=== PATIENT | female | born 1990 | race Asian ===

== ENCOUNTER 2023-07-08 11:16 | Outpatient (CLI) | payer SELFPAY ==
[2023-07-08 12:06] LABS: Basophils Percent Auto 0.2 % (0.2-1.2); Eosinophils Absolute Auto 0.1 K/mm3 (0-0.3); Eosinophils Percent Auto 0.7 % (0-4.4); Hemoglobin 12.6 g/dL (12.0-15.0); Immature Granulocyte Absolute 0.04 K/mm3 (0.00-0.031); Immature Granulocyte Percent A 0.5 % (0-0.5); Lymphocytes Absolute Auto 1.11 K/mm3 (0.9-3.2); Lymphocytes Percent Auto 12.9 % (18.3-44.2); Mean Corpuscular Hemoglobin 31.4 pg (26-34); Mean Corpuscular Volume 89.8 fl (80-100); Mean Platelet Volume 12.7 fl (7.4-10.4); Monocytes Absolute Auto 0.6 K/mm3 (0.1-0.6); Monocytes Percent Auto 7.1 % (2.6-8.5); Neutrophils Absolute Auto 6.8 K/mm3 (1.3-6.7); Neutrophils Percent Auto 78.6 % (45.5-73.1); Platelet Count Result 119 k/mm3 (150-375); Red Blood Count 4.01 M/mm3 (4.2-5.4); Red Cell Distribution Width 13.5 % (11.5-14.5); White Blood Count 8.6 K/mm3 (4.5-10.0)
[2023-07-08 12:14] LABS: Alanine Aminotransferase 25 U/L (6-35); Albumin Level 3.7 g/dL (3.5-5.1); Alkaline Phosphatase 91 U/L (38-126); Anion Gap 7 mmol/L (8-16); Aspartate Amino Transferase 27 U/L (14-36); Bilirubin,Total 0.3 mg/dL (0.2-1.3); Blood Urea Nitrogen 8 mg/dL (7-17); Calcium 9.2 mg/dL (8.4-10.2); Carbon Dioxide 22 mmol/L (22-30); Chloride 106 mmol/L (98-107); Estimated Glomerular Filt Rate > 60; Glucose 104 mg/dL (65-110); Potassium 3.9 mmol/L (3.4-5.0); Sodium 135 mmol/L (137-145)
[2023-07-08 12:53] LABS: HIV 1/2 Ab P24 Ag Result Negative (Negative)
== END 2023-07-08 11:17 | disposition home or self-care (01) ==
PROVIDERS: Visit Provider Obstetrics & Gynecology
DX: Z34.90 Encounter for supervision of normal pregnancy, unspecified, unspecified trimester (principal)
CPT/HCPCS: 36415; 80053; 85025; 86644; 86703; 86747; 86787; G0432

== ENCOUNTER 2023-08-09 14:53 | Outpatient (CLI) | payer SELFPAY ==
[2023-08-09 15:17] LABS: Immature Platelet Fraction Pct 29.5 % (0.9-11.2); Platelet Count Result 115 k/mm3 (150-375)
== END 2023-08-09 14:54 | disposition home or self-care (01) ==
PROVIDERS: Visit Provider Obstetrics & Gynecology
DX: O99.119 Other diseases of the blood and blood-forming organs and certain disorders involving the immune mechanism complicating pregnancy, unspecified trimester (principal); D69.6 Thrombocytopenia, unspecified; Z3A.00 Weeks of gestation of pregnancy not specified
CPT/HCPCS: 36415; 85049; 85055

== ENCOUNTER 2023-09-01 21:38 | Inpatient (IN) | payer SELFPAY ==
--- NOTE | 2023-09-01 23:53 | OBADM ---
This patient, Avinash Ansari, admitted to the OB room Labor/Delivery/Recovery 104 for observation. Patient/family oriented to hospital policies and general routines including ID bracelet, bed and alarms, visiting hours, pain management, procedures, bathroom and other care routines, personal items, smoking policy, room service/diet, and visiting hours. Patient/Family are encouraged to report perceived risks to care and to ask questions if they do not understand what they are told or what they should do.
[2023-09-02] VITALS (166 sets, daily range): BP systolic 73–228; BP diastolic 43–205; PULSE 26–288; RESP 18–20; TEMP 36.4–37.9; O2SAT 79–100; BMI 28.6
--- NOTE | 2023-09-02 01:24 | LDADM ---
This patient, Avinash Ansari, was admitted to Labor/Delivery/Recovery 104 on 09/02/23 at 01:24. Plans for labor, pain management and were discussed with patient. Patient/family oriented to hospital policies and general routines including ID bracelet, bed and alarms, visiting hours, pain management, procedures, bathroom and other care routines, personal items, smoking policy, room service/diet and guest tray routines, infant security routines, and visiting hours. Patient/Family are encouraged to report perceived risks to care and to ask questions if they do not understand what they are told or what they should do. See OBIX for further documentation.
[2023-09-02] MEDS: LACTATED RINGERS 1,000 ML 125 ML IV CONT ×2 (01:50→02:33)
[2023-09-02 01:55] LABS: Basophils Percent Auto 0.1 % (0.2-1.2); Eosinophils Percent Auto 0.1 % (0-4.4); Hematocrit 37.5 % (37.0-47.0); Hemoglobin 12.6 g/dL (12.0-15.0); Immature Granulocyte Absolute 0.06 K/mm3 (0.00-0.031); Immature Granulocyte Percent A 0.4 % (0-0.5); Immature Platelet Fraction Pct 30.8 % (0.9-11.2); Lymphocytes Absolute Auto 1.15 K/mm3 (0.9-3.2); Lymphocytes Percent Auto 8.3 % (18.3-44.2); Mean Corpuscular HGB Conc 33.6 g/dl (32-36); Mean Corpuscular Hemoglobin 29.6 pg (26-34); Mean Corpuscular Volume 88.2 fl (80-100); Monocytes Absolute Auto 0.8 K/mm3 (0.1-0.6); Monocytes Percent Auto 5.9 % (2.6-8.5); Neutrophils Absolute Auto 11.8 K/mm3 (1.3-6.7); Neutrophils Percent Auto 85.2 % (45.5-73.1); Platelet Count Result 103 k/mm3 (150-375); Red Blood Count 4.25 M/mm3 (4.2-5.4); White Blood Count 13.8 K/mm3 (4.5-10.0)
--- NOTE | 2023-09-02 02:07 | WPDANESEPP ---
Anes - Eval Pre Procedure Procedure: Labor epidural Date/Time: 09/02/23 02:07 Surgeon: Andrzej Preop Diagnosis: Abdominal pain with contractions Pre Op Diagnosis: Contractions Patient Data Age: 33 Gender: F Height: 1.57 m Weight: 71 kg Last Vital Signs Pulse Ox 100 09/02/23 02:03 Allergies Allergy/AdvReac Type Severity Reaction Status Date / Time No Known Allergies Allergy Verified 09/01/23 17:38 Home Medications Medication Instructions Recorded Confirmed Type vits no.126-ferrous fum 1 tablet PO DAILY 08/09/23 09/02/23 History 28 mg iron-folic acid 800 mcg tablet (Classic ) Laboratory Tests 09/02/23 01:39 WBC 13.8 H K/mm3 (4.5-10.0) RBC 4.25 M/mm3 (4.2-5.4) Hgb 12.6 g/dL (12.0-15.0) Hct 37.5 % (37.0-47.0) MCV 88.2 fl (80-100) MCH 29.6 pg (26-34) MCHC 33.6 g/dl (32-36) RDW 14.0 % (11.5-14.5) Plt Count 103 L k/mm3 (150-375) MPV TNP Immature Gran % (Auto) 0.4 % (0-0.5) Neut % (Auto) 85.2 H % (45.5-73.1) Lymph % (Auto) 8.3 L % (18.3-44.2) [place] % (Auto) 5.9 % (2.6-8.5) Eos % (Auto) 0.1 % (0-4.4) Baso % (Auto) 0.1 L % (0.2-1.2) Lymph # (Auto) 1.15 K/mm3 (0.9-3.2) [place] # (Auto) 0.8 H K/mm3 (0.1-0.6) Eos # (Auto) 0.0 K/mm3 (0-0.3) Baso # (Auto) 0.0 K/mm3 (0.0-0.1) Abs Immat Gran (auto) 0.06 H K/mm3 (0.00-0.031) Absolute Neuts (auto) 11.8 H K/mm3 (1.3-6.7) Absolute Nucleated RBC 0.000 K/mm3 (0.0-0.012) Nucleated RBC % 0.0 % (0.0-0.2) % Immature Plt Fraction 30.8 H % (0.9-11.2) RPR Pending Blood Type Pending Antibody Screen Pending : gestational age HCG: positive Patient hx anesthesia problems: none Family hx anesthesia problems: none Results Review: All pre-operative results and documents have been reviewed as part of the pre-operative evaluation. [facility] Past Medical History Medical History (Updated 09/02/23 @ 02:08 by Eron Morales CRNA) Gestational thrombocytopenia and not yet delivered Family History Family History Other No pertinent family history Social History Social History Smoking status: Never smoker Alcohol intake: never Substance use: never Do You Feel Safe in your Home?: Yes Lack of Transportation: No Lack of Food: Never True Current Housing: I Have Housing Concerned About Future Housing: No Difficulty Paying Gas/Electric Bills: No Difficulty Paying for Meds: No Currently Unemployed: No Education: Bachelor's Degree Difficulty w/ Childcare or Family Care: No Living arrangements: with family Occupation/Education: unemployed Gender identity (if verbalized by the patient): Female Sexual Orientation (if Verbalized by the Patient): Straight or Heterosexual Spiritual care concerns: No Exam Day of Procedure 09/02/23 02:07 Patient weight: overweight
[2023-09-02] MEDS: fentaNYL CITRATE INJ (*CRX) 100 MCG/2 ML VIAL 50 MCG IV PUSH (02:10)
[2023-09-02] MEDS: PHENYLEPHRINE 1,000 MCG/10 ML SYRINGE 100 MCG IV PUSH (03:17)
--- NOTE | 2023-09-02 03:54 | PM.IMHP ---
H&P: HPI History of Present Illness Date/Time: 09/02/23 03:54 Chief Complaint: contractions Narrative: Avinash is a 33yo @ 39.4wks who presented overnight with painful contractions. She made change from 3.5 to 6 to 9cm. She got an epidural and is now comfortable. She denies any VB or LOF. Her is complicated by: - 31wk transfer from [place] - ? Gestational Thrombocytopenia? plts 119 --> 115 --> 103 on admission Review of Systems Constitutional: Constitutional: Denies chills, Denies fever(s) and Denies headache(s) Eyes: Eyes: Denies change in vision ENT: Denies headache(s) Cardiovascular: Cardiovascular: Denies chest pain and Denies dyspnea Respiratory: Respiratory: Denies dyspnea Genitourinary: Genitourinary: Denies abnormal vaginal bleeding and Denies vaginal discharge Neurologic: Denies headache(s) Psychiatric: Psychiatric: Denies anxiety and Denies depression [facility] Past Medical History Medical History (Updated 09/02/23 @ 04:00 by Alexandria Donnelly MD) Gestational thrombocytopenia and not yet delivered Family History Family History Other No pertinent family history Social History Social History Smoking status: Never smoker Alcohol intake: never Substance use: never Do You Feel Safe in your Home?: Yes Lack of Transportation: No Lack of Food: Never True Current Housing: I Have Housing Concerned About Future Housing: No Difficulty Paying Gas/Electric Bills: No Difficulty Paying for Meds: No Currently Unemployed: No Education: Bachelor's Degree Difficulty w/ Childcare or Family Care: No Living arrangements: with family Occupation/Education: unemployed Gender identity (if verbalized by the patient): Female Sexual Orientation (if Verbalized by the Patient): Straight or Heterosexual Spiritual care concerns: No Meds Home Medications and Allergies Home Medications Medication Instructions Recorded Confirmed Type vits no.126-ferrous fum 1 tablet PO DAILY 08/09/23 09/02/23 History 28 mg iron-folic acid 800 mcg tablet (Classic ) Allergies Allergy/AdvReac Type Severity Reaction Status Date / Time No Known Allergies Allergy Verified 09/01/23 17:38 Vital Signs Vital Signs - 24 hr 09/02/23 00:35 09/02/23 01:22 09/02/23 01:27 Pulse Rate Blood Pressure Pulse Oximetry 100 100 100 09/02/23 01:31 09/02/23 01:49 09/02/23 01:52 Pulse Rate Blood Pressure Pulse Oximetry 97 79 L 85 L 09/02/23 01:52 09/02/23 01:53 09/02/23 01:58 Pulse Rate Blood Pressure Pulse Oximetry 89 L 100 97 09/02/23 02:03 09/02/23 02:08 09/02/23 02:13 Pulse Rate 103 H Blood Pressure 128/78 Pulse Oximetry 100 100 97 09/02/23 02:18 09/02/23 02:22 09/02/23 02:23 Pulse Rate 105 H Blood Pressure 115/96 H Pulse Oximetry 98 98 09/02/23 02:26 09/02/23 02:28 09/02/23 02:31 Pulse Rate 113 H 143 H 119 H Blood Pressure 134/73 112/69 93/48 L Pulse Oximetry 98 09/02/23 02:33 09/02/23 02:36 09/02/23 02:38 Pulse Rate 108 H 105 H Blood Pressure 99/48 L 84/46 L Pulse Oximetry 99 98 09/02/23 02:39 09/02/23 02:42 09/02/23 02:43 Pulse Rate 119 H 104 H Blood Pressure 96/69 L 93/67 L Pulse Oximetry 98 09/02/23 02:45 09/02/23 02:48 09/02/23 02:51 Pulse Rate 100 103 H 94 Blood Pressure 95/62 L 91/61 L 85/46 L Pulse Oximetry 96 09/02/23 02:53 09/02/23 02:54 09/02/23 02:57 Pulse Rate 94 88 Blood Pressure 102/51 L 86/47 L Pulse Oximetry 99 09/02/23 02:58 09/02/23 03:01 09/02/23 03:03 Pulse Rate 240 H 93 Blood Pressure 73/45 L 93/51 L Pulse Oximetry 97 95 09/02/23 03:06 09/02/23 03:08 09/02/23 03:09 Pulse Rate 87 83 Blood Pressure 86/44 L 87/49 L Pulse Oximetry 96 03/21/24 03:10 09/02/23 03:13 09/02/23 03:15 Pulse Rate 82
[2023-09-02] MEDS: OXYTOCIN 30 UNITS/NS 500 ML 30 UNITS/500 ML BAG IV CONT (04:21)
[2023-09-02] MEDS: OXYTOCIN 30 UNITS/NS 500 ML 30 UNITS/500 ML BAG 125 UNITS IV CONT (08:49)
--- NOTE | 2023-09-02 11:34 | OBPPTRN ---
Patient transferred to post room #284 via wheelchair. Support person present. Oriented to unit, room, information board, rooming in, admission packet and security measures. Patient verbalizes understanding.
--- NOTE | 2023-09-02 11:56 | PM.OBPRVD ---
OB - Vaginal Delivery Note Procedure Delivery date: 09/02/23 Delivery augmentation: Rupture of Membranes and Pitocin Delivery monitor: External FHT and Internal Uterine Route of delivery: vacuum extraction Indication for instrumentation: nonreassuring FHR tracing Episiotomy description: None Laceration Description: Perineal - 2nd Degree and Labial (right & sub-clitoral) Delivery repair: vicryl Specimen: No Quantitative Blood Loss (ml): 200 Anesthesia type: Epidural Disposition: Floor Complications: No immediate complications Baby Date of : 09/02/23 Time of : 08:20 Weeks of gestation at delivery: 39 (.4) gender: Female Weight (pounds): 7 Weight (ounces): 1 presentation: vertex position: Right Occiput Anterior Placenta delivery description: Spontaneous Cord Vessel Description: 3 Vessels score one minute: 7 score five minutes: 9 Narrative: Sidra progressed to complete dilation and began pushing. She pushed for approximately 2 hours with good maternal effort, however, her contractions were weak therefore Pitocin augmentation was started. After Pitocin augmentation was started she began having good descent and progressed to 2+ station. But severe variables to the 70s were noted. After approximately 2-3 minutes there was return to baseline but with additional pushing the heart rate remained in the 70s. She was counseled on the need for vacuum assisted vaginal delivery. The pediatric team was present, her epidural was working well, and the patient agreed to the vacuum. With the next contraction the kiwi vacuum suction was applied and with the patient pushing, 3 pulls were performed (no pop-offs), and the head was delivered over intact perineum. The kiwi vacuum suction was released. No nuchal cord was palpated. The patient easily delivered the 's shoulders and body without complication. The infant was immediately placed skin to skin and had spontaneous cry. The mouth and nose were bulb suctioned. Delayed cord clamping was performed. The umbilical cord was then doubly clamped and cut. A segment of the cord was collected for cord gases. The remaining cord blood was collected for typing. With Pitocin running and gentle downward traction on the cord, the placenta delivered without complications. Bimanual massage was performed and good uterine tone with minimal bleeding was noted. She was examined and a right labial, sub clitoral, and second-degree perineal laceration were identified. The first 2 lacerations were repaired in the normal fashion using 3-0 Vicryl. The second-degree perineal laceration was repaired in the normal fashion using 2-0 Vicryl and good hemostasis was noted. She did have a skin tag in her left groin that she desired to be removed and it was cut at its base. She was once again examined and her uterus was found to be firm with minimal bleeding. Sponge, lap, instrument, and needle counts were correct at the end the procedure. Mom and baby were left bonding in the birthing suite in stable condition. [facility] Delivery Billing Delivery Delivery: Delivery Charge
[2023-09-02 12:44] LABS: Rapid Plasma Reagin Non-Reactive (NonReactive)
--- NOTE | 2023-09-02 14:46 | PC.NURSE ---
[id number] Introductions were made, then consulted with patient to assess needs related to . Mother led the conversation with her?plans to feed?her infant, the?experience so far, and future goals with bottle feeding. Encouraged understanding of the benefits of skin to skin (demonstrating unwrapping infant and placing upright on her chest), stimulating with massage touch, changing positions to encourage wakefulness, how to watch for early feeding cues, responsive feeding, feeding on demand (aiming for 8-12 times in 24 hours, about every 2-3 hours), milk production, building/maintaining a milk supply, duration of feeding, signs of adequate intake/output and how to record on the feeding sheet. Mother works well with her infant with encouragement and education. Reviewed positioning and ear, shoulder, hip alignment, supporting the breast to facilitate a deep latch, asymmetrical latch (off-center), leading with the chin with a big, open, wide gape and body close to mother. opens wide to latch, however; sucks with the nipple at the front of the mouth. Educated parents of the latch and no swallowing. Mother is confident that infant did not latch since as this latch feels the same as the others. Reviewed comfort measures of healing with a warm, wet washcloth to rinse breast, then leave open to air-dry, good handwashing when or touching the breast/nipples to prevent infection. Mother is interested in pumping to protect her milk supply and plans to bottle feed with EBM on occasion. We reviewed the risks and benefits of bottle feeding with EBM, formula, and . Breast pump provided due to ineffective and parents desire to breastfeed and bottle feed. Instructions given on cleaning, care, usage, that there should be no pain, pumping schedule for milk production, collection, and storage of human milk. Patient was assessed for correct placement, flange size, to pump for comfort and nipple stretching/stimulation for adequate milk production every 3 hours (8 times in 24 hours) 1-2 times at night. Parents are encouraged to record the pumping schedule on the feeding sheet.?Mother voiced understanding of the education shared along with mom/baby guide and the pump measurement, flange fit handout for additional resource information. Mother voiced understanding of skin to skin, stimulating with massage touch, responsive feedings, hand expressed colostrum, talking to to encourage if it has been 2 -2.5 hours since the start of the last , to call if infant does not latch, or if there is discomfort with . Resources used for education were facilitated with the visual educational handouts/ tool/mom and baby guide. Inpatient/outpatient resources provided with feeding sheet, name written on the communication board, and the mom/baby guide. Parents voiced understanding of information, demonstrated learning and will call if there is a request for assistance. Reported to the Primary RN. 4595 / tsp of colostrum was collected and spoon fed to . Reported to the Primary RN.
[2023-09-02] MEDS: DOCUSATE SODIUM 100 MG CAPSULE PO (19:16)
[2023-09-02] MEDS: MULTIVIT/MIN/PREN/FOL AC/IRON TABLET 1 TAB PO (19:16)
[2023-09-03 03:55] VITALS: BP 104/65; PULSE 76; RESP 18; TEMP 37; O2SAT 100
[2023-09-03 05:14] LABS: Hematocrit 32.8 % (37.0-47.0); Hemoglobin 10.9 g/dL (12.0-15.0); Immature Platelet Fraction Pct 27.3 % (0.9-11.2); Mean Corpuscular HGB Conc 33.2 g/dl (32-36); Mean Corpuscular Hemoglobin 30.1 pg (26-34); Mean Corpuscular Volume 90.6 fl (80-100); Platelet Count Result 89 k/mm3 (150-375); Red Blood Count 3.62 M/mm3 (4.2-5.4); Red Cell Distribution Width 14.2 % (11.5-14.5); White Blood Count 14.7 K/mm3 (4.5-10.0)
--- NOTE | 2023-09-03 06:46 | PM.OBPNVD ---
OB - PN: Subj Subjective Date/time seen: 09/03/23 06:46 Narrative: PPD#1 Malu reports doing well today. 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 Her pain is controlled. She is tolerating regular diet, voiding, passing gas, and ambulating without issues. She is breast feeding. She would like to go home today. OB - PN: Obj Data Labs 09/03/23 04:04 Labs: Laboratory Results - last 24 hr 09/02/23 09/03/23 01:39 04:04 WBC 14.7 H RBC 3.62 L Hgb 10.9 L Hct 32.8 L MCV 90.6 MCH 30.1 MCHC 33.2 RDW 14.2 Plt Count 89 L MPV TNP % Immature Plt Fraction 27.3 H RPR Non-reactive OB - PN A/P Assessment and Plan (1) Vacuum-assisted vaginal delivery: Code(s): Z37.9 - Outcome of delivery, unspecified Status: Acute (2) Gestational thrombocytopenia: Code(s): O99.119 - Other diseases of the blood and blood-forming organs and certain disorders involving the immune mechanism complicating , unspecified trimester; D69.6 - Thrombocytopenia, unspecified Status: Acute Plan day: 1 Plan: routine care and discharge home (this PM) Comments: - PO pain meds - Regular diet - Ambulation and hydration encouraged - Continue putting baby to breast q2-3hr - repeat cbc in AM Time Spent With Patient Time: Total time spent is greater than 50% in coordination of care (as documented) at patient's floor/unit and/or counseling patient: Review of Systems Constitutional: Constitutional: Denies chills, Denies fever(s) and Denies headache(s) Eyes: Eyes: Denies change in vision ENT: Denies dizziness and Denies headache(s) Cardiovascular: Cardiovascular: Denies chest pain, Denies palpitations and Denies dyspnea Respiratory: Respiratory: Denies cough and Denies dyspnea Gastrointestinal: Gastrointestinal: Denies nausea and Denies vomiting Neurologic: Denies dizziness and Denies headache(s) Endocrine: Endocrine: Denies palpitations Exam Const: General: cooperative, comfortable and no acute distress Orientation/consciousness: patient oriented x3 Resp: Effort & Inspection: normal respiratory effort Auscultation: clear to auscultation bilaterally Cardio: Rate: regular rate GI: Inspection: non-distended GI Palp: No abdominal tenderness and Yes Soft to palpation Auscultation: normal bowel sounds : Other: fundus firm Skin: General skin exam: normal color Neuro: General: patient oriented x3 Extrem: General: normal to inspection Psych: Appearance: grossly normal Affect: normal affect Attitude: cooperative
--- NOTE | 2023-09-03 06:50 | PM.OBDSVD ---
DS: Admitting Diagnosis Discharge Date 09/03/23 Admitting Diagnosis Active labor at term gestational thrombocytopenia DS: Discharge Diagnosis Discharge Diagnosis (1) Vacuum-assisted vaginal delivery: Code(s): Z37.9 - Outcome of delivery, unspecified Status: Acute OB - DS: Summary OB Procedures : Ultrasound OB Procedures Intrapartum: Vacuum extraction OB Procedures: : None Peripartum Data Infant Delivery Method: Assisted Delivery Laceration Description: Perineal - 2nd Degree and Labial (right & sub-clitoral) Episiotomy description: None complications: none [place] 1: Gender: Female Disposition of : home Status at Discharge Functional status at discharge: independent ambulation Overall status at discharge: patient is back to baseline Time Spent with Patient Time attestation: Total time spent providing and/or coordinating discharge services: Time spent: Less than 30 minutes Exam Const: General: cooperative, healthy appearing, comfortable and no acute distress Orientation/consciousness: patient oriented x3 Resp: Effort & Inspection: normal respiratory effort Auscultation: clear to auscultation bilaterally Cardio: Rate: regular rate GI: Inspection: non-distended GI Palp: No abdominal tenderness and Yes Soft to palpation Auscultation: normal bowel sounds : Other: fundus firm Skin: General skin exam: normal color Neuro: General: patient oriented x3 Extrem: General: normal to inspection Psych: Appearance: grossly normal Affect: normal affect Attitude: cooperative DS: Data Data Completed and Pending Labs on day of discharge: Labs from last 24 hours 09/03/23 09/02/23 04:04 01:39 WBC 14.7 H RBC 3.62 L Hgb 10.9 L Hct 32.8 L MCV 90.6 MCH 30.1 MCHC 33.2 RDW 14.2 Plt Count 89 L MPV TNP % Immature Plt Fraction 27.3 H RPR Non-reactive Discharge Plan Discharge Attending physician on discharge: Alexandria Donnelly Discharging Clinician: Alexandria Donnelly Anticipated Discharge Date/Time: 09/03/23 15:00 Patient Disposition: Home, Self-Care Activity: as tolerated Diet: as tolerated and regular Patient Instructions: Vaginal Delivery (DC) Follow-up/Referrals: Alexandria Donnelly MD [Physician] - 4 Weeks Discharge Medications: New acetaminophen 325 mg Tablet 650 mg PO Q6H PRN (Reason: Mild Pain (1-3) Or Headache) Qty: 60 0RF docusate sodium 100 mg Capsule 100 mg PO BID PRN (Reason: Constipation) Qty: 60 2RF ibuprofen 600 mg Tablet 600 mg PO Q6H PRN (Reason: Cramping) Qty: 40 0RF Continued Classic 28 mg iron- 800 mcg Tablet 1 tablet PO DAILY Date of admission: 09/02/23 01:24 Primary Care Provider: UNKNOWN,DOCTOR Admitting Provider: Alexandria Donnelly Attending physician on admission: Alexandria Donnelly Condition: Stable
--- NOTE | 2023-09-03 07:26 | WPDANLDPN2 ---
Anes-Prog Note L&D Date/Time: 09/03/23 07:26 Comfortable throughout: labor and delivery Neuraxial method: epidural Epidural/Spinal procedure site: clean & non-tender Neuro status: Neuro function grossly intact. Cardiovascular status: normal Respiratory status: normal Airway patency: baseline Mental status: baseline Post-Op hydration status: normal Vital Signs: Last Vital Signs Temp 37.0 C 09/03/23 03:55 Pulse 76 09/03/23 03:55 Resp 18 09/03/23 03:55 BP 104/65 09/03/23 03:55 Pulse Ox 100 09/03/23 03:55 O2 Del Method Room Air 09/02/23 17:20 Pain score (VAS): 1 I/O: Intake & Output 09/02/23 09/02/23 09/03/23 15:59 23:59 07:59 Intake Total 500 Balance 500 Post-procedural complaints: none Patient feedback: Patient satisfied with anesthetic care.
[2023-09-03 08:00] VITALS: BP 115/75; PULSE 76; PULSE 91; RESP 16; RESP 18; TEMP 36.7; O2SAT 100
[2023-09-03] MEDS: DOCUSATE SODIUM 100 MG CAPSULE PO (09:46)
[2023-09-03] MEDS: MULTIVIT/MIN/PREN/FOL AC/IRON TABLET 1 TAB PO (09:46)
--- NOTE | 2023-09-03 13:19 | PC.NURSE ---
[id number] Consulted with patient to assess needs related to . Discussed with mother her successes, concerns and any questions she has. Mother initiated formula feeding last night related to she felt like what she was pumping wasn't enough and she couldn't get baby to latch. RN last night initiated a nipple shield, however; mother doesn't want to use it and states that is didn't help the situation. Reviewed good handwashing, cleaning the nipple shield and the appropriate way to apply (with demonstration) and use as a tool. Discussed with mom the nipple shield precautions, possible complications associated with the risks and benefits. Reviewed practicing with a nipple shield, then without and how to protect the milk supply and production. Encouraged understanding the benefits of skin to skin, responding to feeding cues, frequencies of feeding 8-12 times in 24 hours (approximately 2-3 hours), duration of feedings, milk production, intake/output feeding sheet and signs of adequate intake encouraging swallowing at the breast. Reviewed positioning and alignment, supporting breast, off-centered (asymmetrical latch) and leading with the chin with big, open, wide gape. Infant shows minimal feeding cues, then when at the breast refuses to open mouth. After multiple attempts was syringe fed 2mls of EBM and mother encouraged to pump to protect her milk supply. Reviewed with parents paced bottle feeding and responsive feeding. Nipple care reviewed with optimal latch, good positioning and using clean hands when touching her breast. Resources used to facilitate learning were used from the visual handouts/ tool/mom and baby guide. Mother voiced understanding of the education shared, to call for assistance if the infant does not latch or if there is discomfort with , and to practice attempting at the breast. The plan is to attempt when feeding cues are seen or between [id number]. Primary RN is present for a blood draw.
[2023-09-03 13:31] LABS: Hematocrit 33.5 % (37.0-47.0); Hemoglobin 11.5 g/dL (12.0-15.0); Immature Platelet Fraction Pct 26.9 % (0.9-11.2); Mean Corpuscular HGB Conc 34.3 g/dl (32-36); Mean Corpuscular Hemoglobin 30.6 pg (26-34); Mean Corpuscular Volume 89.1 fl (80-100); Mean Platelet Volume 14.1 fl (7.4-10.4); Platelet Count Result 105 k/mm3 (150-375); Red Blood Count 3.76 M/mm3 (4.2-5.4); Red Cell Distribution Width 14.5 % (11.5-14.5); White Blood Count 15.3 K/mm3 (4.5-10.0)
--- NOTE | 2023-09-03 16:29 | PC.NURSE ---
[id number] Mother requested a consult. Upon entering the room mother is on the phone and shared that she fed the at 1330. Mother is interested in placing infant [id number] to see if infant will demonstrate feeding cues. Infant is sleepy and reluctant. When there are rare feeding cues visualized and infant is brought to the breast the infant cries or refuses to open mouth. placed [id number] and mother instructed to call when feeding cues and visualized, when she needs help waking to , pain with latching, or any questions or concerns.
--- NOTE | 2023-09-03 17:01 | PC.NURSE ---
Discharged delayed due to parents not having a name for baby and father of baby needing to leave hospital to go home; father of baby returned at 1700.
--- NOTE | 2023-09-03 17:24 | PC.NURSE ---
Patient viewed the discharge video Mother & Baby Care, The First Two Weeks . Patient was given the opportunity and encouraged to ask questions. Patient verbalized understanding of information shared and has been given the mother/baby guide for home reference.
[2023-09-04 10:35] VITALS: BP 111/71; PULSE 82; RESP 18; TEMP 36.7; O2SAT 100
== END 2023-09-03 19:57 | disposition home or self-care (01) | DRG 560 ==
LOC: ANHLDR 09-02 08:48 → ANHOB2 09-02 11:37
PROVIDERS: Admitting Provider Obstetrics & Gynecology; Visit Provider Obstetrics & Gynecology
DX: O99.12 Other diseases of the blood and blood-forming organs and certain disorders involving the immune mechanism complicating childbirth (principal); D69.6 Thrombocytopenia, unspecified; O70.1 Second degree perineal laceration during delivery; Z3A.39 39 weeks gestation of pregnancy; Z37.0 Single live birth; O99.72 Diseases of the skin and subcutaneous tissue complicating childbirth; L91.8 Other hypertrophic disorders of the skin
CPT/HCPCS: 36415; 85025; 85027; 85055; 86592; 86850; 86900; 86901; A9270; G0378; J2371; J2590; J2795; J3010; J7120